=== PATIENT | male | born 1955 | race Caucasian/White ===

== ENCOUNTER 2018-01-27 09:28 | Day surgery (SDC) | payer MEDICAID ==
[2018-01-27] MEDS ORDERED: FENTANYL PF 100MCG/2ML VIAL IV ONE (09:29)
[2018-01-27] MEDS ORDERED: LIDOCAINE 1% MDV (10MG/ML) 20ML VIAL SQ ONE (09:29)
[2018-01-27] MEDS ORDERED: PROPOFOL 10 MG/ML VIAL IV ONE (09:29)
--- NOTE | 2018-01-28 08:40 | Operative Note ---
Dictated by Dr. Miguel Momin DATE OF SURGERY: 01/27/2018 PERFORMING PHYSICIAN: Anthony Calix DO ASSISTING PHYSICIAN: Dr. Miguel Momin PREOPERATIVE DIAGNOSIS: History of Parada's esophagus and history of colon polyps. POSTOPERATIVE DIAGNOSIS: Irregular Z line and colon polyps. INDICATIONS FOR PROCEDURE: This is a 62-year-old male with history of Parada's esophagus initially diagnosed over 15 years ago. He had EGD in 2014 and colonoscopy in 2014. He was noted to have irregular Z line at that time as well. He had colon polyps at that time suspicious of villous adenoma with 3-year followup recommended. DESCRIPTION OF PROCEDURE: The patient was seen prior to the procedure and risks of EGD and colonoscopy including perforation, bleeding, and infection were discussed in detail as well as risks of anesthesia. Consent for both anesthesia and procedure was signed, and the patient was taken back to the endoscopy unit. A timeout was conducted confirming his name, date of , procedure to be done, and allergies. The patient was given time to answer questions as well. The patient was then placed on his left lateral side. A bite block was put in place and he was monitored with ECG, blood pressure, and pulse oximetry. He was then placed under moderate sedation by Anesthesia. A gastroscope was then lubricated and inserted through the oropharynx into the esophagus, the stomach, and duodenum and then retracted out starting from the second portion of the duodenum. The duodenum, stomach, and esophagus were evaluated thoroughly and retroflexion view of the stomach was done as well. This did not show any abnormalities. On view of the esophagus, irregular Z line with squamous patches was appreciated and distal esophageal biopsies of the Z line were taken. The scope was then withdrawn after air was suctioned out. The patient tolerated the procedure very well. The patient was then turned around and the scopes were switched out to proceed to the colonoscopy. A colonoscope was then lubricated and inserted into the rectum after a thorough anorectal examination was done that showed no abnormalities. The scope was advanced all the way to the cecum where the appendiceal orifice and ileocecal valve were appreciated. Retroflexion was done within the cecum that did not show any abnormalities. The terminal ileum was intubated as well, proceeded in about 10 cm with no abnormalities appreciated. The scope was then withdrawn to the rectum with over 6-minute withdrawal time. Polyps were appreciated in the sigmoid colon. A 3 mm polyp was seen that was removed with cold biopsy and a 5 mm polyp was seen and removed with cold snare. The scope was then withdrawn to the rectum and a retroflexion view was done that showed no abnormalities. The scope was then withdrawn and the patient tolerated the procedure very well with minimal if any bleeding. FINDINGS: Irregular Z line with biopsies of the esophagus taken. Colon polyps. One 3 mm sigmoid polyp removed with biopsy and one 5 mm polyp removed with snare. RECOMMENDATIONS: Would await pathology results pending recommendations for repeat colonoscopy and EGD likely within 3-5 years. As always, thank you for allowing me to participate in the care of your patient. CC: LOBO PURCELL D.O. TREVON
== END 2018-01-27 12:16 | disposition home or self-care (01) ==
LOC: HOP 09:28
PROVIDERS: ATTEND Internal Medicine Gastroenterology
DX: Z12.11 Encounter for screening for malignant neoplasm of colon (principal); Z86.010 Personal history of colon polyps; D12.5 Benign neoplasm of sigmoid colon; K31.89 Other diseases of stomach and duodenum; Z87.19 Personal history of other diseases of the digestive system; E03.9 Hypothyroidism, unspecified; K21.9 Gastro-esophageal reflux disease without esophagitis
CPT/HCPCS: 45380; 45385; 43239; 00811; J3010

== ENCOUNTER 2019-01-11 11:37 | Emergency (ER) | payer MEDICAID ==
--- NOTE | 2019-01-11 11:51 | Emergency Department Record ---
History of Present Illness - General Chief Complaint: Back Pain/Injury Stated Complaint: BACK PAIN Time Seen by Provider: 01/11/19 11:41 Source: Patient Mode of Arrival: Ambulatory Limitations: No limitations - History of Present Illness Initial Comments: The patient is here due to worsening of his chronic back pain. The patient has had a long hx of similar pain at times and about 2 weeks ago re-aggravated the back again. He has been doing a lot more yard work and some construction work which has greatly worsened the pain in the low back. The pain is mainly on the R lower back area and intermittently does radiate down the back of the R leg. The patient denies any leg numbness, weakness, or any bowel or bladder issues. The patient has had similar problems in the past and has had a laminectomy in the past. He presently is only using Lidoderm patches for pain. MD Complaint: Back pain Onset/Timin -: Week(s) Similar Symptoms Previously: Yes Place: Home Radiation: Other Severity: Severe Severity scale (1-10): >10 Quality: Sharp, Stabbing Consistency: Constant Improves With: Immobilization Worsens With: Movement, Sitting upright, Walking Context: Turning/twisting, While lifting Associated Symptoms: Difficulty walking, Numbness Treatments Prior to Arrival: Cold therapy, Heat therapy Treatment Prior to Arrival Comment:: lidocaine patches. - Related Data Home Medications Medication Instructions Recorded Confirmed Last Taken Levothyroxine Sodium [Synthroid] 0.15 mcg PO DAILY 01/11/19 01/11/19 01/11/19 Proline [l-Proline] 25 gm MC DAILY 01/11/19 01/11/19 01/11/19 Previous Rx's Medication Instructions Recorded Cyclobenzaprine HCl [Flexeril] 10 mg PO TID PRN #20 tablet 01/11/19 Tramadol HCl 50 mg PO Q8H #12 tab 01/11/19 Allergies Allergy/AdvReac Type Severity Reaction Status Date / Time latex Allergy RASH Verified 01/11/19 11:52 codeine AdvReac NAUSEA AND Verified 01/11/19 11:52 VOMITING Travel Screening - Travel/Exposure Within Last 30 Days Have you traveled within the last 30 days?: No - Travel Symptoms Symptom Screening: None Review of Systems Constitutional: Denies: Chills, Fever Eyes: Denies: Eye discharge ENT: Denies: Congestion Respiratory: Denies: Cough, Dyspnea Past Medical History - SOCIAL HISTORY Smoking Status: Never smoker Alcohol Use: None Drug Use: Occasional Drug Use Detail:: Marijuana - RESPIRATORY Hx Respiratory Disorders: No - CARDIOVASCULAR Hx Cardio Disorders: No - NEURO Hx Neuro Disorders: Yes Hx Neuropathy: Yes (left leg occ.) Comment:: sciatic nerve pain. - GI Hx GI Disorders: Yes Hx Abdominal Pain: Yes (in the am) Hx GI Bleed: Yes (2000) Hx Reflux: Yes Hx Ulcer: Yes Hx of Polyps: Yes Comment:: barretts esophagus - Hx Genitourinary Disorders: No - ENDOCRINE Hx Endocrine Disorders: Yes Hx Thyroid Disease: Yes Comment:: hypothyroid - MUSCULOSKELETAL Hx Musculoskeletal Disorders: Yes Hx Arthritis: Yes (osteoarthritis) Hx Back Injury: Yes - PSYCH Hx Psych Problems: No - HEMATOLOGY/ONCOLOGY Hx Hematology/Oncology Disorders: Yes Hx Anemia: Yes (2000) Family Medical History Any Significant Family History?: Yes Hx Alcohol Use: Mother Hx Cancer: Mother *Cancer Comment: mother-lung Hx Diabetes: Mother Hx Heart Disease: Father *Heart Comment: chf Hx Resp Disorders: Father *Resp Comment: had TB Physical Exam - General General Appearance: Alert, Oriented x3, Cooperative, Mild distress - Head Head exam: Atraumatic, Normocephalic, Normal inspection - Eye Eye exam: Normal appearance, PERRL - Neck Neck exam: Normal inspection, Full ROM. negative: Tenderness - Respiratory Respiratory exam: Normal lung sounds bilaterally. negative: Respiratory distress - Cardiovascular Cardiovascular Exam: Regular rate, Normal rhythm, Normal heart sounds - GI/Abdominal GI/Abdominal exam: Soft, Normal bowel sounds. negative: Tenderness - Extremities Extremities exam: Normal inspection, Full ROM, Normal capillary refill, Other (Pos SLR on R at 30 degrees.). negative: Joint swelling, Tenderness - Back Back exam: Reports: Normal inspection. Denies: Paraspinal tenderness, Vertebral tenderness - Neurological Neurological exam: Alert, Normal gait, Oriented X3, Reflexes normal (Reflexes are 2+ and equal bilaterally. ). negative: Abnormal gait, Altered, Motor sensory deficit (The patient has no motor or sensory deficits.) - Skin Skin exam: negative: Rash Course Vital Signs 01/11/19 11:38 Temperature 97.7 F Pulse Rate 67 Respiratory 18 Rate Blood Pressure 149/84 Pulse Ox 99 - Reevaluation(s) Reevaluation #1: The patient is doing better at this time and denies any need for more pain medicines. I did discuss the need to see his PCP and his Neurosurgeon this week for recheck. He is to return to the ER for any worsening pain, leg weakness, or any bowel or bladder incontinence. 01/11/19 12:46 Disposition Disposition: Discharge Clinical Impression: Chronic low back pain Qualifiers: Back pain laterality: unspecified Sciatica presence: unspecified whether sciatica present Qualified Code(s): M54.5 - Low back pain Disposition: Home, Self-Care Condition: (2) Stable Instructions: Chronic Back Pain (ED) Additional Instructions: Please continue the Lidoderm patches and use the Tramadol and Flexeril as directed. Please see your family doctor this week for recheck and for more pain medicines. Please see your Neurosurgeon this week for recheck. Return to the ER for any worsening pain, leg numbness, weakness, or any bowel or bladder incontinence. Prescriptions: Cyclobenzaprine HCl [Flexeril] 10 mg PO TID PRN #20 tablet PRN Reason: Pain Tramadol HCl 50 mg PO Q8H #12 tab Forms: Patient Portal Access Time of Disposition: 12:50 Quality - Quality Measures Quality Measures: N/A - Blood Pressure Screening View Details: Yes Does Patient Have Any of the Following: No Blood Pressure Classification: Pre-Hypertensive BP Reading Systolic Measurement: 149 Diastolic Measurement: 84 Screening for High Blood Pressure: < Pre-Hypertensive BP, F/U Documented > [G8950] Pre-Hypertensive Follow-up Interventions: Referral to alternative/primary care provider.
[2019-01-11] MEDS ORDERED: KETOROLAC 30 MG/ML VIAL IM ONE (12:03)
[2019-01-11] MEDS ORDERED: ORPHENADRINE CITRATE 60MG/2ML VIAL IM ONE (12:03)
== END 2019-01-11 13:05 | disposition home or self-care (01) ==
LOC: ER 11:37
DX: G89.29 Other chronic pain (principal); M54.5 Low back pain
CPT/HCPCS: 99283 ×2; 96372; J1885; J2360